=== PATIENT | male | born 1990 | race Caucasian/White ===

== ENCOUNTER 2022-06-26 15:17 | Outpatient (CLI) | payer SELFPAY | END 2022-06-26 15:18 | disposition left against medical advice (07) | LOC: EMS 15:17 | DX: R46.4 Slowness and poor responsiveness (principal); R63.8 Other symptoms and signs concerning food and fluid intake; R45.89 Other symptoms and signs involving emotional state ==

== ENCOUNTER 2022-06-26 17:05 | Emergency (ER) | payer MEDICAID, OTHER ==
[2022-06-26 17:40] VITALS: BP 165/97
== END 2022-06-26 18:08 | disposition left against medical advice (07) ==
LOC: ED 17:05
DX: Z53.21 Procedure and treatment not carried out due to patient leaving prior to being seen by health care provider (principal)
CPT/HCPCS: 80053; 80307; 80320; 80329; 83690; 84443; 85025

== ENCOUNTER 2022-10-13 19:37 | Emergency (ER) | payer SELFPAY ==
--- NOTE | 2022-10-13 20:34 | ED Physician Documentation ---
History of Present Illness - Stated complaint Stated Complaint: INTOX/MHE - Chief complaint Chief Complaint: MHE - History obtained from History obtained from: Patient, Family (mother and sister) - Additonal information Additional information: 32yM with pmh etoh p/w depressed behavior and heavy alcohol intake over the past 3 days per mother and daughter report. patient himself is intoxicated and not forthcoming with information. mother and daughter enquire about addiction treatment resources. Review of Systems Unable to obtain: Intoxicated PD PAST MEDICAL HISTORY - Past Medical History Past Medical History: Yes Cardiovascular: None Respiratory: None Endocrine/Autoimmune: None GI: None : None HEENT: None Psych: Depression, Other Musculoskeletal: None Derm: None Other Past Medical History: Alcoholism - Past Surgical History Past Surgical History: Yes General: Other Ortho: Other - Present Medications Home Medications: Ambulatory Orders Medication Instructions Recorded Confirmed No Known Home Medications 10/13/22 10/13/22 - Allergies Allergies/Adverse Reactions: Allergies Allergy/AdvReac Type Severity Reaction Status Date / Time No Known Drug Allergies Allergy Verified 10/13/22 19:57 - Social History Does the pt smoke?: No Smoking Status: Never smoker Does the pt drink ETOH?: Yes ETOH Use: Liquor Does the pt have substance abuse?: No - Immunizations Immunizations are current?: Yes Immunizations: TDAP >10years/unknown - POLST Patient has POLST: No PD ED PE NORMAL - Vitals Vital signs reviewed: Yes - General General: Alert and oriented X 3, No acute distress, Well developed/nourished - HEENT HEENT: Atraumatic, PERRL, EOMI, Moist mucous membranes, Pharynx benign - Neck Neck: Supple, no meningeal sign - Cardiac Cardiac: RRR - Respiratory Respiratory: No respiratory distress, Clear bilaterally - Abdomen Abdomen: Non tender, Non distended - Derm Derm: Normal color, Warm and dry - Extremities Extremities: No deformity - Neuro Neuro: Alert and oriented X 3, No motor deficit, No sensory deficit - Psych Psych: Other (clinically intoxicated) Results - Vitals Vitals: Vital Signs - 24 hr 10/13/22 10/13/22 19:45 20:40 Temperature 36.7 C Heart Rate 94 84 Respiratory 14 14 Rate Blood Pressure 158/118 H 144/111 H O2 Saturation 94 98 Oxygen O2 Source Room air PD Medical Decision Making - ED course ED course: d/w mother and sister of patient that since he himself is intoxicated at this time and does not want detox, the best course of action is to return during daylight hours when social work is available and he is more sober. emphasized need for medical assistance with detox since he states he drinks heavily daily and is at risk of withdrawal. additional community detox resources and info provided. return precautions given. patient will be dc'd home with sister and mother. plan to refer to a new pcp as well since he does not currently have health insurance or a pcp. Departure - Departure Disposition: Home, Self Care Clinical Impression: Alcohol abuse, Depression Condition: Stable Instructions: Addiction Alcohol Follow-Up: Valeria Chen PA-C [Provider Admit Priv/Credential] - Comments: You are seen in the emergency department for alcohol addiction. Please return to the emergency department between 9 and 5 PM Friday through Friday to speak with a nephrology social worker if you would like to seek out treatment. [place] also [place] some crisis triage facilities that can be a resource to you. Return to the emergency department if you have any new symptoms or other concerns. Do not try to quit drinking alcohol suddenly on your own because this can cause withdrawal which can be dangerous. Discharge Date/Time: 10/13/22 20:40
[2022-10-13 20:41] VITALS: BP 144/111
== END 2022-10-13 20:40 | disposition home or self-care (01) ==
LOC: ED 19:37
DX: F10.229 Alcohol dependence with intoxication, unspecified (principal); F32.A Depression, unspecified
CPT/HCPCS: 99281

== ENCOUNTER 2022-12-16 11:04 | Outpatient (CLI) | payer OTHER, MEDICAID | END 2022-12-16 23:59 | disposition critical access hospital (66) | LOC: EMS 11:04 | DX: R56.9 Unspecified convulsions (principal); Z72.89 Other problems related to lifestyle | CPT/HCPCS: A0425; A0429 ==

== ENCOUNTER 2022-12-16 11:16 | Inpatient (IN) | payer OTHER, MEDICAID ==
[2022-12-16] MEDS ORDERED: THIAMINE INJ 100 MG, MAGNESIUM SULFATE 2 GM, MULTIVITAMIN 10 ML, FOLIC ACID INJ 1 MG in... IV ONE ×5 (11:57)
--- NOTE | 2022-12-16 12:00 | ED Physician Documentation ---
History of Present Illness - Stated complaint Stated Complaint: SZ/ETOH - Chief complaint Chief Complaint: Neuro - History obtained from History obtained from: Patient, Family - History of Present Illness Timing: Today Pain level max: 6 Pain level now: 4 - Additonal information Additional information: 32-year-old male presents to the emergency department with EMS. He is also accompanied by his mother. Reportedly has a longstanding history of depression. Is not currently on any medications. His mother states that he has been severely depressed, not getting out of bed for the past 3 weeks. She states that he lost his job last week. He has been drinking approximately 18 beers per day for the past several weeks. He has not been eating otherwise. Mother states that he is trying to detox off alcohol himself. She states that his last drink was last night. Has never had a seizure before. Today there was a witnessed 3 to 4-minute seizure at home had a postictal period. Patient complains of mild pain in his back, chest and head. Patient was sitting on the edge of the bed when the seizure occurred. Currently he is at his normal mental baseline. No numbness or tingling. Is not currently on any blood thinners. Does not take any home medications. Denies any other drug use. He states that he does vape at home. Review of Systems Constitutional: denies: Fever, Chills GI: denies: Vomiting, Diarrhea Neurologic: denies: Focal weakness, Numbness, Confused, Altered mental status PD PAST MEDICAL HISTORY - Past Medical History Cardiovascular: None Respiratory: None Endocrine/Autoimmune: None GI: None : None HEENT: None Psych: Depression, Other Musculoskeletal: None Derm: None - Past Surgical History Past Surgical History: Yes General: Other Ortho: Other - Present Medications Home Medications: Ambulatory Orders Medication Instructions Recorded Confirmed No Known Home Medications 10/13/22 12/16/22 - Allergies Allergies/Adverse Reactions: Allergies Allergy/AdvReac Type Severity Reaction Status Date / Time No Known Drug Allergies Allergy Verified 10/13/22 19:57 - Social History Does the pt smoke?: No Smoking Status: Never smoker Does the pt drink ETOH?: Yes Does the pt have substance abuse?: No - Immunizations Immunizations are current?: Yes Immunizations: TDAP >10years/unknown - POLST Patient has POLST: No PD ED PE NORMAL - Vitals Vital signs reviewed: Yes - General General: Alert and oriented X 3, No acute distress, Well developed/nourished - HEENT HEENT: Atraumatic, PERRL, EOMI, Moist mucous membranes - Neck Neck: Supple, no meningeal sign - Cardiac Cardiac: RRR, Strong equal pulses - Respiratory Respiratory: No respiratory distress, Clear bilaterally - Abdomen Abdomen: Normal bowel sounds, Soft, Non tender, Non distended - Derm Derm: Warm and dry, No rash - Extremities Extremities: No edema, No calf tenderness / cord - Neuro Neuro: Alert and oriented X 3 - Psych Psych: Normal mood, Normal affect Results - Vitals Vitals: Vital Signs - 24 hr 12/16/22 12/16/22 12/16/22 11:26 11:43 12:21 Temperature 37.1 C Heart Rate 126 H 125 H 100 Respiratory 20 18 18 Rate Blood Pressure 159/117 H 162/113 H 146/103 H O2 Saturation 96 97 97 12/16/22 12/16/22 12/16/22 12:48 13:01 14:44 Temperature Heart Rate 95 87 82 Respiratory 20 18 18 Rate Blood Pressure 141/94 H 151/87 H 142/104 H O2 Saturation 95 99 94 12/16/22 12/16/22 12/16/22 15:02 15:54 16:30 Temperature Heart Rate 84 103 H 83 Respiratory 18 20 18 Rate Blood Pressure 165/100 H 160/115 H 171/129 H O2 Saturation 95 97 93 12/16/22 12/16/22 12/16/22 17:03 17:42 18:00 Temperature Heart Rate 81 90 97 Respiratory 18 20 18 Rate Blood Pressure 154/97 H 163/115 H 163/115 H O2 Saturation 92 93 93 12/16/22 12/16/22 12/16/22 18:30 19:20 19:30 Temperature Heart Rate 94 94 99 Respiratory 18 20 19 Rate Blood Pressure 135/121 H 143/104 H O2 Saturation 97 97 99 Oxygen O2 Source Room air - EKG (time done) 1234 Rate: Rate (enter#) (94) Rhythm: NSR [place]: Normal Intervals: Normal [place] QRS: Normal Ischemia: ST elevation c/w repol - Labs Labs: Laboratory Tests 12/16/22 12/16/22 12/16/22 12:05 12:05 12:05 WBC 8.9 RBC 4.81 Hgb 15.6 Hct 44.9 MCV 93.3 MCH 32.4 H MCHC 34.7 RDW 12.9 Plt Count 206 MPV 9.4 Neut # (Auto) 7.7 H Lymph # (Auto) 0.4 L White # (Auto) 0.7 Eos # (Auto) 0.0 Baso # (Auto) 0.1 Absolute Nucleated RBC 0.00 Nucleated RBC % 0.0 Sodium 133 L Potassium 3.5 Chloride 96 L Carbon Dioxide 23 Anion Gap 14.0 H BUN 12 Creatinine 0.8 Estimated GFR (MDRD) 112 Glucose 128 H Calcium 9.9 Phosphorus 1.5 L Magnesium 2.0 Total Bilirubin 1.5 H AST 75 H ALT 59 Alkaline Phosphatase 70 Total Protein 7.7 Albumin 4.3 Globulin 3.4 Albumin/Globulin Ratio 1.3 Lipase 97 H TSH 2.39 Urine Color Urine Clarity Urine pH Ur Specific [place] Urine Protein Urine Glucose (UA) Urine Ketones Urine Occult Blood Urine Nitrite Urine Bilirubin Urine Urobilinogen Ur Leukocyte Esterase Ur Microscopic Review Urine Culture Comments Salicylates < 6.0 Urine Opiates Screen Ur Oxycodone Screen Urine Methadone Screen Ur Propoxyphene Screen Acetaminophen < 10 L Ur Barbiturates Screen Ur Tricyclics Screen Ur Phencyclidine Scrn Ur Amphetamine Screen U Methamphetamines Scrn U Benzodiazepines Scrn Urine Cocaine Screen U Cannabinoids Screen Ethyl Alcohol < 5.0 SARS-CoV-2 (PCR) 12/16/22 12/16/22 12:47 13:57 WBC RBC Hgb Hct MCV MCH MCHC RDW Plt Count MPV Neut # (Auto) Lymph # (Auto) White # (Auto) Eos # (Auto) Baso # (Auto) Absolute Nucleated RBC Nucleated RBC % Sodium Potassium Chloride Carbon Dioxide Anion Gap BUN Creatinine Estimated GFR (MDRD) Glucose Calcium Phosphorus Magnesium Total Bilirubin AST ALT Alkaline Phosphatase Total Protein Albumin Globulin Albumin/Globulin Ratio Lipase TSH Urine Color YELLOW Urine Clarity CLEAR Urine pH 7.5 Ur Specific [place] 1.010 Urine Protein NEGATIVE Urine Glucose (UA) NEGATIVE Urine Ketones NEGATIVE Urine Occult Blood TRACE-INTA Urine Nitrite NEGATIVE Urine Bilirubin NEGATIVE Urine Urobilinogen 0.2 (NORMAL) Ur Leukocyte Esterase NEGATIVE Ur Microscopic Review NOT INDICATED Urine Culture Comments NOT INDICATED Salicylates Urine Opiates Screen NEGATIVE Ur Oxycodone Screen NEGATIVE Urine Methadone Screen NEGATIVE Ur Propoxyphene Screen NEGATIVE Acetaminophen Ur Barbiturates Screen NEGATIVE Ur Tricyclics Screen NEGATIVE Ur Phencyclidine Scrn NEGATIVE Ur Amphetamine Screen NEGATIVE U Methamphetamines Scrn NEGATIVE U Benzodiazepines Scrn NEGATIVE Urine Cocaine Screen NEGATIVE U Cannabinoids Screen NEGATIVE Ethyl Alcohol SARS-CoV-2 (PCR) NOT DETECTED - Rads (name of study) head CT Radiology: Final report received, See rad report (no acute abnormality) PD Medical Decision Making - ED course Complexity details: reviewed results, re-evaluated patient, considered differential, d/w patient, d/w family, d/w [employer] sales consultant ED course: 32-year-old male with what appears to be an alcohol withdrawal seizure today. No acute findings on head CT. His laboratory testing does not have any significant abnormalities on CBC. Chemistry shows a minimal hyponatremia, mildly elevated bilirubin and mildly elevated lipase. His urinalysis does not show any acute abnormalities talk screen is negative. COVID test is negative. Given a banana bag IV. He was also given 2 mg of Ativan as he was tremulous in the emergency department. He has never had seizures before. Recommend inpatient detox. Social work was consulted and will look for a bed. The psychiatric/detox facility state they will not take him until he is seizure- free for 24 to 48 hours. Therefore we will admit the patient here for alcohol detox given his seizure activity. He was given 2 mg of Ativan here initially and another milligram several hours later. He is not currently tremulous. Discussed the case with the telehealth hospitalist who accepts for admission. This document was made in part using voice recognition software. While efforts are made to proofread this document, sound alike and grammatical errors may occur. This document was made in part using voice recognition software. While efforts are made to proofread this document, sound alike and grammatical errors may occur. Departure - Departure Disposition: [facility] DC/Xfer Clinical Impression: Alcohol abuse Alcohol withdrawal seizure Qualifiers: Complication of substance-induced condition: uncomplicated Qualified Code(s): F10.930 - Alcohol use, unspecified with withdrawal, uncomplicated Depression Qualifiers: Depression Type: unspecified Qualified Code(s): F32.A - Depression, unspecified Condition: Stable Discharge Date/Time: 12/16/22 20:25
[2022-12-16 12:24] LABS: BASOPHILS # (AUTO) 0.1 10^3/uL (0.0-0.1); BASOPHILS % (AUTO) 0.7 %; HCT - HEMATOCRIT 44.9 % (42.0-52.0); HGB - HEMOGLOBIN 15.6 g/dL (14.0-18.0); LYMPHOCYTES # (AUTO) 0.4 10^3/uL (1.5-3.5); LYMPHOCYTES % (AUTO) 4.6 %; MEAN CORPUSCULAR HEMOGLOBIN 32.4 pg (27.0-31.0); MEAN CORPUSCULAR HGB CONC 34.7 g/dL (32.0-36.0); MEAN CORPUSCULAR VOLUME 93.3 fL (80.0-94.0); MEAN PLATELET VOLUME 9.4 fL (7.4-11.4); MONOCYTES # (AUTO) 0.7 10^3/uL (0.0-1.0); MONOCYTES % (AUTO) 7.6 %; NEUTROPHILS # (AUTO) 7.7 10^3/uL (1.5-6.6); NEUTROPHILS % (AUTO) 86.5 %; PLT - PLATELET COUNT 206 10^3/uL (130-450); RED BLOOD COUNT 4.81 10^6/uL (4.70-6.10); RED CELL DISTRIBUTION WIDTH 12.9 % (12.0-15.0); WHITE BLOOD COUNT 8.9 x10^3/uL (4.8-10.8)
[2022-12-16 12:35] LABS: ACETAMINOPHEN < 10 ug/mL (10-30); ALBUMIN 4.3 g/dL (3.2-5.5); ALBUMIN/GLOBULIN RATIO 1.3 (1.0-2.2); ALKALINE PHOSPHATASE 70 IU/L (42-121); ALT ALANINE AMINOTRANSFERASE 59 IU/L (10-60); AST ASPARTATE AMINOTRANSFERASE 75 IU/L (10-42); BILIRUBIN,TOTAL 1.5 mg/dL (0.2-1.0); BUN - BLOOD UREA NITROGEN 12 mg/dL (6-20); CALCIUM 9.9 mg/dL (8.5-10.3); CARBON DIOXIDE - CO2 23 mmol/L (21-32); CHLORIDE 96 mmol/L (101-111); CREATININE 0.8 mg/dL (0.6-1.2); ETOH - ETHANOL < 5.0 mg/dL; GFR - MDRD 112 (>89); GLUCOSE 128 mg/dL (70-100); LIPASE 97 U/L (22-51); PHOSPHORUS 1.5 mg/dL (2.5-4.6); POTASSIUM 3.5 mmol/L (3.5-5.0); SALICYLATE < 6.0 mg/dL; SODIUM 133 mmol/L (135-145); TOTAL PROTEIN 7.7 g/dL (6.7-8.2)
--- NOTE | 2022-12-16 12:46 | CT Report ---
PROCEDURE: HEAD WO INDICATIONS: new onset seizure TECHNIQUE: Noncontrast 4.5 mm thick angled axial sections acquired from the foramen magnum to the vertex. For r adiation dose reduction, the following was used: automated exposure control, adjustment of mA and/or kV according to patient size. COMPARISON: None. FINDINGS: Image quality: Excellent. CSF spaces: Basal cisterns are patent. No extra-axial fluid collections. Ventricles are normal in size and shape. Brain: No midline shift. No intracranial masses or hemorrhage. Alford-white matter interface is norm al. Skull and face: Calvarium and visualized facial bones are intact, without suspicious lesions. Sinuses: Visualized sinuses and mastoids are clear. IMPRESSION: No evidence acute intracranial abnormality. Reviewed by: Alan Land MD on 12/16/2022 12:45 PM PST Approved by: Alan Land MD on 12/16/2022 12:45 PM [facility] Station ID: [id number]
[2022-12-16] MEDS ORDERED: LORazepam 2 MG/ML VIAL IVP STA ×2 (14:13→18:16)
[2022-12-16 14:18] LABS: MUDS CUTOFF CONCENTRATIONS CUTOFF CONC BELOW:
[2022-12-16 14:27] LABS: BILIRUBIN,URINE NEGATIVE (NEGATIVE); GLUCOSE, URINE (UA) NEGATIVE (NEGATIVE); KETONES,URINE (UA) NEGATIVE (NEGATIVE); LEUKOCYTE ESTERASE, URINE NEGATIVE (NEGATIVE); NITRITE,URINE NEGATIVE (NEGATIVE); OCCULT BLOOD,URINE TRACE-INTA (NEGATIVE); PH,URINE 7.5 PH (5.0-7.5); PROTEIN,URINE NEGATIVE (NEGATIVE); UROBILINOGEN,URINE 0.2 (NORMAL) E.U./dL (NORMAL)
[2022-12-16 14:28] LABS: CLARITY,URINE CLEAR (CLEAR)
[2022-12-16 14:36] LABS: AMPHETAMINE SCREEN,URINE NEGATIVE (NEGATIVE); BARBITURATE SCREEN,UR NEGATIVE (NEGATIVE); BENZODIAZEPINES SCREEN, URINE NEGATIVE (NEGATIVE); COCAINE SCREEN URINE NEGATIVE (NEGATIVE); METHADONE SCREEN, URINE NEGATIVE (NEGATIVE); METHAMPHETAMINES SCREEN, URINE NEGATIVE (NEGATIVE); OPIATE SCREEN, URINE NEGATIVE (NEGATIVE); OXYCODONE SCREEN, URINE NEGATIVE (NEGATIVE); PROPOXYPHENE SCREEN, URINE NEGATIVE (NEGATIVE); THC CANNABINOID SCREEN, URINE NEGATIVE (NEGATIVE); TRICYCLIC ANTIDEPRESSANT,URINE NEGATIVE (NEGATIVE)
--- NOTE | 2022-12-16 19:28 | HISTORY & PHYSICAL EXAMINATION ---
Chief Complaint - Chief Complaint Chief Complaint: Seizure History of Present Illness - Admitted From Admitted From:: ER - History Obtained From Records Reviewed: Yes History obtained from: ER, pt Exam Limitations: H&P was conducted via video remotely, using Access Cart. - History of Present Illness HPI Comment/Other: 32 yo M with h/o Depression, remote h/o Migraines and ETOH abuse presented to the ER s/p seizure this AM. Pt has no h/o Seizures. He has been drinking about 18-24 beers/day x 2 months. He recently went through the end of a relationship. His mother had previously reported that he lost his job 1 week ago. His last beer was yesterday afternoon. This AM, he went to a Walk-in clinic to ask for help with ETOH Detox. He was told to come back tomorrow. When they returned to the house, he saw a flash of light which reminded him of his old Migraines. His mother went to get him some meds from another room. Pt went into his bedroom and stood by his bed. His mother then heard a "thud." She and pt's sister went to see pt. He was having a seizure, unconscious with jerking movements, lasting about 7 minutes. When pt woke up, he felt confused, his tongue hurt; he had bitten it. He felt sore all over. Pt denies N/V/Abdo pain/F/C/CP/SOB. In the ER, BP 163/115, HR 90, AST 75, ETOH<5. Pt was given Banana Bag, Ativan 2 mg IV then another 1 mg IV 3 hours later. SW was consulted. Detox facilities will not take pt until he has been seizure- free x 24-48 hours. History - Past Medical History Cardiovascular: reports: None Respiratory: reports: None Endocrine/Autoimmune: reports: None GI: reports: None : reports: None HEENT: reports: None Psych: reports: Depression, Other Musculoskeletal: reports: None Derm: reports: None MRSA Hx?: No - Past Surgical History General: reports: Other Ortho: reports: Other - POLST Patient has POLST: No Meds/Allgy - Home Medications Home Medications: Ambulatory Orders Medication Instructions Recorded Confirmed No Known Home Medications 10/13/22 12/16/22 - Allergies Allergies/Adverse Reactions: Allergies Allergy/AdvReac Type Severity Reaction Status Date / Time No Known Drug Allergies Allergy Verified 10/13/22 19:57 Review of Systems - All Other Systems All Other Systems: reports: Reviewed and negative Exam - Vital Signs Vital Signs: Vital Signs x48h Temp Pulse Resp BP Pulse Ox 12/16/22 19:20 94 20 135/121 H 97 12/16/22 18:30 94 18 97 12/16/22 18:00 97 18 163/115 H 93 12/16/22 17:42 90 20 163/115 H 93 12/16/22 17:03 81 18 154/97 H 92 12/16/22 16:30 83 18 171/129 H 93 12/16/22 15:54 103 H 20 160/115 H 97 12/16/22 15:02 84 18 165/100 H 95 12/16/22 14:44 82 18 142/104 H 94 12/16/22 13:01 87 18 151/87 H 99 12/16/22 12:48 95 20 141/94 H 95 12/16/22 12:21 100 18 146/103 H 97 12/16/22 11:43 125 H 18 162/113 H 97 12/16/22 11:26 37.1 C 126 H 20 159/117 H 96 - Physical Exam General Appearance: positive: No acute distress Eyes Bilateral: positive: EOMI, No scleral icterus Respiratory: positive: Other ( per ER Provider: CTA B/L) Cardiovascular: positive: Other ( per ER Provider: RRR, no murmurs) Abdomen: positive: Other (per ER Provider: non-distended, NT, Soft) Neurologic/Psychiatric: positive: Oriented x3, CN's nml (2-12) Conclusion/Plan - Problem List (1) Alcohol withdrawal seizure Conclusion/Plan: ETOH Withdrawal with Seizure ETOH abuse High BP Tachycardia Elevated LFTs -BP 163/115, HR 90, AST 75, ETOH<5. -Pt was given Banana Bag, Ativan 2 mg IV then another 1 mg IV 3 hours later. Per ER Provider, he currently has mild symptoms of W/D. -SW was consulted. Detox facilities will not take pt until he has been seizure- free x 24-48 hours. -pt appears alert, stable, not currently tremulous -admit to Med tele -continue CIWA protocol with PRN IV Ativan Depression -pt not on meds -recommend F/u with Psych VTE Prophylaxis: Lovenox Code Status: Full Code -Cyndi Loco MD Hospitalist Qualifiers: Complication of substance-induced condition: uncomplicated Qualified Code(s): F10.930 - Alcohol use, unspecified with withdrawal, uncomplicated; R56.9 - Unspecified convulsions - Lab Results Fish Bones: 12/16/22 12:05 12/16/22 12:05
[2022-12-16] MEDS ORDERED: LORazepam 2 MG/ML VIAL IVP PRN (19:44)
[2022-12-16] MEDS ORDERED: ONDANSETRON ODT 4 MG TABLET TL PRN (19:48)
[2022-12-16] MEDS ORDERED: ACETAMINOPHEN 325 MG TABLET PO PRN (19:48)
[2022-12-16] MEDS ORDERED: SODIUM CHLORIDE FLUSH 0.9% 10 ML SYRINGE IVP PRN (19:48)
[2022-12-16] MEDS ORDERED: ONDANSETRON 4 MG/2 ML VIAL IVP PRN (19:48)
[2022-12-17] MEDS: SODIUM CHLORIDE FLUSH 0.9% 10 ML SYRINGE IVP SCH ×2 (00:15→08:28)
[2022-12-17 06:22] LABS: BASOPHILS # (AUTO) 0.1 10^3/uL (0.0-0.1); BASOPHILS % (AUTO) 0.6 %; EOSINOPHILS # (AUTO) 0.1 10^3/uL (0.0-0.7); HCT - HEMATOCRIT 44.1 % (42.0-52.0); HGB - HEMOGLOBIN 15.2 g/dL (14.0-18.0); LYMPHOCYTES # (AUTO) 0.9 10^3/uL (1.5-3.5); LYMPHOCYTES % (AUTO) 11.1 %; MEAN CORPUSCULAR HEMOGLOBIN 32.9 pg (27.0-31.0); MEAN CORPUSCULAR HGB CONC 34.5 g/dL (32.0-36.0); MEAN CORPUSCULAR VOLUME 95.5 fL (80.0-94.0); MEAN PLATELET VOLUME 9.6 fL (7.4-11.4); MONOCYTES # (AUTO) 0.9 10^3/uL (0.0-1.0); MONOCYTES % (AUTO) 10.7 %; NEUTROPHILS # (AUTO) 6.1 10^3/uL (1.5-6.6); NEUTROPHILS % (AUTO) 76.3 %; PLT - PLATELET COUNT 169 10^3/uL (130-450); RED BLOOD COUNT 4.62 10^6/uL (4.70-6.10); RED CELL DISTRIBUTION WIDTH 13.2 % (12.0-15.0)
[2022-12-17 06:39] LABS: ALBUMIN 4.1 g/dL (3.2-5.5); ALBUMIN/GLOBULIN RATIO 1.1 (1.0-2.2); BILIRUBIN,TOTAL 1.4 mg/dL (0.2-1.0); CALCIUM 9.7 mg/dL (8.5-10.3); CREATININE 0.7 mg/dL (0.6-1.2); MAGNESIUM 2.1 mg/dL (1.7-2.8); POTASSIUM 3.3 mmol/L (3.5-5.0); TOTAL PROTEIN 7.7 g/dL (6.7-8.2)
[2022-12-17] MEDS ORDERED: THIAMINE 100 MG TABLET PO SCH (09:00)
[2022-12-17] MEDS ORDERED: PRENATAL VITAMIN TABLET PO SCH (09:00)
[2022-12-17] MEDS ORDERED: ENOXAPARIN 40 MG/0.4 ML SYRINGE SUBQ SCH (09:00)
--- NOTE | 2022-12-17 10:30 | PHARMACY PROGRESS NOTE ---
- Best Possible Medication History Admit Date and Time: 12/16/221947 Processed by: Pharmacy Medication History completed: Yes Patient Interview: Completed Secondary Source(s): Other family member (his mother knows his OTC meds) As the person ultimately responsible for medication therapy, providers are able to order a medication from an existing home medication list in [facility] via the "Reconcile Routine" prior to Confirmation of that medication by cad application support specialist. Such practice is discouraged except when the physician, in their clinical judgment, deems that a medical need exists for a medication without regard to previous use.
--- NOTE | 2022-12-17 11:15 | Discharge Plan ---
Discharge Plan Problem Reviewed?: Yes Disposition: Home, Self Care Condition: Stable Prescriptions: Citalopram [CeleXA] 10 mg PO DAILY #30 tablet Folic Acid 1 mg PO DAILY #30 tablet Thiamine [Vitamin B-1] 1 tab PO DAILY #100 tab Diet: Regular Activity Restrictions: Activity as Tolerated Shower Restrictions: No Driving Restrictions: Yes (no driving for 6 months) Health Concerns: You have a history of alcohol abuse as a way to self medicate for anxiety with depression. You have been sober for 2 months and then went back to binge drinking. Your last drink was December 15. By the you are having shakes and you had a witnessed seizure in public, and then another witnessed seizure at home with your mom. Ambulance was called. We evaluated you to make sure you were not having any other reasons to have seizures. We look for brain tumors, strokes, electrolyte abnormalities, or recreational substance abuse. We found no other reason other than alcohol withdrawal to cause the seizure. Plan of Treatment: You have received IV fluids for hydration with multivitamins with thiamine and folate. You have not had any medication for withdrawal since the day you were admitted. You currently do not have any shakes, high blood pressure, or fast heart rate. You are asking for medication for depression and anxiety. The medications recommended are Paxil, Zoloft, Celexa, or Lexapro. Your mom has used Celexa in the past so we will be recommending it for you. That is been called into [email or web address]. Celexa started at 10 mg a day. It is increased about once a week to 20 mg, then 30 mg then 40 mg. Please establish yourself with a primary care provider to get the increase Celexa. These medications are successful when combined with cognitive behavioral therapy. We recommend cognitive behavioral therapy to be started as soon as possible to help with anxiety and depression. We also recommend a rehab program for alcohol abuse. The study shows that if you combine treatment for both problems at the same time, you have better success rates of staying clean and sober as well as controlling your depression and anxiety. Care Goals: You have not stated what your care goals are. Your family, however, is stated they wish you to address your alcohol abuse and stop drinking so that you can stay gainfully employed, and not suffer the medical complications of alcoholism. Hopefully 1 day you will be able to state what your care goals are Assessment: Plan of treatment and care goals discussed with the patient. Patient states that they understand and will follow through. Additional Instructions or Follow Up instructions: This document was made in part using voice recognition software. While efforts are made to proofread this document, sound alike and grammatical errors may occur. No Smoking: If you smoke, Please STOP! Call for help.
[2022-12-17] MEDS ORDERED: POTASSIUM CHLORIDE 20 MEQ TABLET PO SCH (12:00)
--- NOTE | 2022-12-17 12:18 | DISCHARGE SUMMARY ---
Discharge Summary Admit Date: 12/16/22 Discharge Date: 12/17/22 Discharging Provider: Kendra Montenegro MD Primary Care Provider: No PCP Code Status: Attempt Resuscitation Condition at Discharge: Stable Discharge Disposition: 01 Home, Self Care - DIAGNOSES Discharge Diagnoses with Status of Each Condition: 1. Alcohol withdrawal seizure 2. Alcohol abuse, chronic 3. Depressive disorder with generalized anxiety 4. Hypokalemia 5. Hypertension without diagnosis of high blood pressure - HPI History of Present Illness: 32 yo M with h/o Depression, remote h/o Migraines and ETOH abuse presented to the ER s/p seizure this AM. Pt has no h/o Seizures. He has been drinking about 18-24 beers/day x 2 months. He recently went through the end of a relationship. His mother had previously reported that he lost his job 1 week ago. His last beer was yesterday afternoon. This AM, he went to a Walk-in clinic to ask for help with ETOH Detox. He was told to come back tomorrow. When they returned to the house, he saw a flash of light which reminded him of his old Migraines. His mother went to get him some meds from another room. Pt went into his bedroom and stood by his bed. His mother then heard a "thud." She and pt's sister went to see pt. He was having a seizure, unconscious with jerking movements, lasting about 7 minutes. When pt woke up, he felt confused, his tongue hurt; he had bitten it. He felt sore all over. Pt denies N/V/Abdo pain/F/C/CP/SOB. In the ER, BP 163/115, HR 90, AST 75, ETOH<5. Pt was given Banana Bag, Ativan 2 mg IV then another 1 mg IV 3 hours later. SW was consulted. Detox facilities will not take pt until he has been seizure- free x 24-48 hours. - Past Medical History Cardiovascular: reports: None Respiratory: reports: None Endocrine/Autoimmune: reports: None GI: reports: None : reports: None HEENT: reports: None Psych: reports: Depression, Other Musculoskeletal: reports: None Derm: reports: None MRSA Hx?: No - Past Surgical History General: reports: Other Ortho: reports: Other - CONSULTS | PROCEDURES Procedures: Head CT is without evidence of acute intracranial abnormality - HOSPITAL COURSE Hospital Course: The patient was admitted for presumed alcohol withdrawal that would continue for the next few days. He only required a benzodiazepine in the emergency room. He did not have any further seizures. After 24 hours, the patient was felt stable enough for discharge. There is no tremulousness, sweats, tachycardia. He himself stated that he felt "okay". His main concern was treatment for anxiety and depression. That is why he drinks. He asked for medication to start and we started him on Celexa 10 mg a day with the anticipation that he would establish himself with a primary care provider and increase his dosage in the next week. I also asked him to continue to take thiamine and folic acid in the outpatient setting. I explained that treatment for both anxiety and depression, combined with treatment for the alcoholism would have a better success rate. I also explained that combining the Celexa with cognitive behavioral therapy would also increase the success rates. Social work has signed him up with coordinated care to access Medicaid benefits. He has been referred to the [facility] clinics for mental health. He needs to follow-up with those as well as establish himself with a primary care provider. He is discharged in stable condition, with no acute distress. Patient is calm, quiet. Mom and sister do most of the talking. Temperature is 36.6. Heart rate 93. Blood pressure 149/97. Respirations 20. 97% on room air. No diaphoresis, tachycardia. Speech is slow and lucid. Sentence structure is normal. No respiratory distress. Hypertension is noted but it is just over the border of treatment. This may be associated with withdrawal. As such I did not want to send him home on medications. He will need to follow-up with a primary care provider to start routine medications for that if still present. Neck was supple. Lungs were clear. Regular rate and rhythm. Alert, oriented, normal speech. He appeared very calm, and almost on worried in comparison to his sister and mom. - ALLERGIES Allergies/Adverse Reactions: Allergies Allergy/AdvReac Type Severity Reaction Status Date / Time No Known Drug Allergies Allergy Verified 10/13/22 19:57 - MEDICATIONS Home Medications: Ambulatory Orders Medication Instructions Recorded Confirmed Citalopram [CeleXA] 10 mg PO DAILY #30 tablet 12/17/22 Folic Acid 1 mg PO DAILY #30 tablet 12/17/22 Glucosamine Sulfate 1 tab PO DAILY 12/17/22 12/17/22 Melatonin 1 - 2 tab PO HS 12/17/22 12/17/22 Multivitamin [Theragran] 1 tab PO DAILY 12/17/22 12/17/22 Thiamine [Vitamin B-1] 1 tab PO DAILY #100 tab 12/17/22 Zinc Gluconate [Zinc] 1 tab PO BID 12/17/22 12/17/22 - LABS Result Diagrams: 12/17/22 05:46 12/17/22 05:46
[2022-12-17 12:57] VITALS: BP 140/99
[2022-12-17 13:20] LABS: MUDS CUTOFF CONCENTRATIONS CUTOFF CONC BELOW:
[2022-12-17 13:34] LABS: AMPHETAMINE SCREEN,URINE NEGATIVE (NEGATIVE); BARBITURATE SCREEN,UR NEGATIVE (NEGATIVE); BENZODIAZEPINES SCREEN, URINE POSITIVE (NEGATIVE); COCAINE SCREEN URINE NEGATIVE (NEGATIVE); METHADONE SCREEN, URINE NEGATIVE (NEGATIVE); METHAMPHETAMINES SCREEN, URINE NEGATIVE (NEGATIVE); OPIATE SCREEN, URINE NEGATIVE (NEGATIVE); OXYCODONE SCREEN, URINE NEGATIVE (NEGATIVE); PROPOXYPHENE SCREEN, URINE NEGATIVE (NEGATIVE); THC CANNABINOID SCREEN, URINE NEGATIVE (NEGATIVE); TRICYCLIC ANTIDEPRESSANT,URINE NEGATIVE (NEGATIVE)
== END 2022-12-17 14:17 | disposition home or self-care (01) | DRG 897 ==
LOC: EDUNIT# → ED 11:16 → MS2 19:48
PROVIDERS: ADMIT Internal Medicine; ATTEND Specialist
DX: F10.239 Alcohol dependence with withdrawal, unspecified (principal); R56.9 Unspecified convulsions; R51.9 Headache, unspecified; F41.8 Other specified anxiety disorders; E87.6 Hypokalemia; I10 Essential (primary) hypertension; Z20.822 Contact with and (suspected) exposure to COVID-19
CPT/HCPCS: 36415; 70450; 80053; 80306; 80307; 80320; 80329; 81003; 83690; 83735; 84100; 84443; 85025; 87635; 93005; 96365; 96366; 96372; 96375; 96376; 99285; A9270; G0378; J1650; J2060; J3411; 81001; 87086

== ENCOUNTER 2023-10-21 21:38 | Emergency (ER) | payer MEDICAID, OTHER ==
[2023-10-21] MEDS ORDERED: SODIUM CHLORIDE 0.9% 1,000 ML IV STA (22:12)
[2023-10-21] MEDS ORDERED: PHENobarbital 65 MG/ML VIAL IV STA (22:12)
[2023-10-21 22:33] LABS: BASOPHILS % (AUTO) 0.9 %; EOSINOPHILS % (AUTO) 0.2 %; HCT - HEMATOCRIT 43.2 % (42.0-52.0); HGB - HEMOGLOBIN 15.7 g/dL (14.0-18.0); LYMPHOCYTES # (AUTO) 1.1 10^3/uL (1.5-3.5); LYMPHOCYTES % (AUTO) 25.2 %; MEAN CORPUSCULAR HEMOGLOBIN 33.7 pg (27.0-31.0); MEAN CORPUSCULAR HGB CONC 36.3 g/dL (32.0-36.0); MEAN CORPUSCULAR VOLUME 92.7 fL (80.0-94.0); MEAN PLATELET VOLUME 9.7 fL (7.4-11.4); MONOCYTES # (AUTO) 0.5 10^3/uL (0.0-1.0); MONOCYTES % (AUTO) 12.1 %; NEUTROPHILS # (AUTO) 2.6 10^3/uL (1.5-6.6); NEUTROPHILS % (AUTO) 61.6 %; PLT - PLATELET COUNT 115 10^3/uL (130-450); RED BLOOD COUNT 4.66 10^6/uL (4.70-6.10); RED CELL DISTRIBUTION WIDTH 11.7 % (12.0-15.0); WHITE BLOOD COUNT 4.3 x10^3/uL (4.8-10.8)
[2023-10-21 22:44] LABS: ALBUMIN 4.7 g/dL (3.2-5.5)
[2023-10-21 23:15] LABS: ALBUMIN/GLOBULIN RATIO 1.5 (1.0-2.2); BILIRUBIN,TOTAL 1.3 mg/dL (0.2-1.0); CREATININE 0.6 mg/dL (0.6-1.3); ETOH - ETHANOL 508.5 mg/dL; POTASSIUM 3.2 mmol/L (3.5-4.5); TOTAL PROTEIN 7.9 g/dL (6.4-8.9)
[2023-10-22] MEDS ORDERED: SODIUM CHLORIDE 0.9% 1,000 ML IV STA ×2 (01:12→06:54)
[2023-10-22] MEDS ORDERED: THIAMINE INJ 100 MG, MAGNESIUM SULFATE 2 GM, MULTIVITAMIN 10 ML, FOLIC ACID INJ 1 MG in... IV STA ×5 (01:55)
[2023-10-22 01:56] LABS: AMPHETAMINE SCREEN,URINE NEGATIVE (NEGATIVE); BARBITURATE SCREEN,UR NEGATIVE (NEGATIVE); BENZODIAZEPINES SCREEN, URINE NEGATIVE (NEGATIVE); BUPRENORPHINE SCREEN, URINE NEGATIVE (NEGATIVE); COCAINE SCREEN URINE NEGATIVE (NEGATIVE); METHADONE SCREEN, URINE NEGATIVE (NEGATIVE); METHAMPHETAMINES SCREEN, URINE NEGATIVE (NEGATIVE); OPIATE SCREEN, URINE NEGATIVE (NEGATIVE); OXYCODONE SCREEN, URINE NEGATIVE (NEGATIVE); THC CANNABINOID SCREEN, URINE NEGATIVE (NEGATIVE); TRICYCLIC ANTIDEPRESSANT,URINE NEGATIVE (NEGATIVE)
[2023-10-22] MEDS ORDERED: MAGNESIUM SULFATE 1 GM/2 ML VIAL ONE (02:58)
[2023-10-22] MEDS ORDERED: FOLIC ACID 5 MG/1 ML 10ML MDV ONE (02:58)
[2023-10-22] MEDS ORDERED: THIAMINE 100 MG/1 ML 2 ML MDV ONE (02:58)
[2023-10-22 04:16] VITALS: BP 134/80; O2SAT 95
--- NOTE | 2023-10-22 04:44 | ED Physician Documentation ---
History of Present Illness - Stated complaint Stated Complaint: DETOX - Chief complaint Chief Complaint: MHE - History obtained from History obtained from: Patient, Family - Additonal information Additional information: Patient is brought to the emergency department by family for chief complaint of "I want detox". The patient has a longstanding history of alcohol abuse but has been especially struggling for about the last year and a half. He states the last 2 weeks have been worse still, since his grandmother . Sister states patient has just been laying around, drinking all day and not eating any food or taking care of himself otherwise. Patient denies taking any other drugs. He states that he does not have any physical complaints. No vomiting. No shortness of breath. He has a history of alcohol withdrawal seizures. His last drink was about an hour and a half ago and he has not been trying to cut back today, but has had a fairly typical alcohol intake. PD PAST MEDICAL HISTORY - Past Medical History Cardiovascular: None Respiratory: None Endocrine/Autoimmune: None GI: None : None HEENT: None Psych: Depression, Other Musculoskeletal: None Derm: None - Past Surgical History Past Surgical History: Yes General: Other Ortho: Other - Present Medications Home Medications: Ambulatory Orders Medication Instructions Recorded Confirmed No Known Home Medications 10/21/23 10/21/23 - Allergies Allergies/Adverse Reactions: Allergies Allergy/AdvReac Type Severity Reaction Status Date / Time No Known Drug Allergies Allergy Verified 10/21/23 22:03 - Social History Does the pt smoke?: No Smoking Status: Never smoker Does the pt drink ETOH?: Yes Does the pt have substance abuse?: No - Immunizations Immunizations are current?: Yes Immunizations: TDAP >10years/unknown - POLST Patient has POLST: No PD ED PE NORMAL - Vitals Vital signs reviewed: Yes - General General: No acute distress, Well developed/nourished, Other (Heavily intoxicated, does arouse to answer questions.) - HEENT HEENT: Atraumatic, PERRL, EOMI, Moist mucous membranes - Neck Neck: Supple, no meningeal sign - Cardiac Cardiac: No murmur, Strong equal pulses, Other (Tachycardic rate regular rhythm no murmurs.) - Respiratory Respiratory: No respiratory distress, Clear bilaterally - Abdomen Abdomen: Soft, Non tender, Non distended - Derm Derm: Normal color, Warm and dry, No rash - Extremities Extremities: No deformity, No edema - Neuro Neuro: Other (Heavily intoxicated clinically, drowsy, but arouses to answer q uestions. No gross deficits otherwise.) - Psych Psych: Normal mood, Normal affect Results - Vitals Vitals: Vital Signs - 24 hr 10/21/23 10/21/23 10/21/23 21:54 22:35 23:00 Temperature 36.6 C Heart Rate 116 H 110 H 111 H Respiratory 17 14 16 Rate Blood Pressure 144/99 H 155/120 H 162/100 H O2 Saturation 97 92 95 10/21/23 10/22/23 10/22/23 23:30 00:00 01:00 Temperature Heart Rate 113 H 109 H 103 H Respiratory 18 18 15 Rate Blood Pressure 137/100 H 141/100 H 135/95 H O2 Saturation 95 95 93 10/22/23 10/22/23 10/22/23 02:00 03:00 04:00 Temperature Heart Rate 108 H 117 H 100 Respiratory 15 14 15 Rate Blood Pressure 121/77 140/89 H 134/80 H O2 Saturation 94 96 95 Oxygen O2 Source Room air - EKG (time done) 0131 EKG releavant findings:: EKG personally interpreted by author of this note. Relevant findings are: Rate: Rate (enter#) (126) Rhythm: Sinus tachycardia [place]: LAD Intervals: Normal NE QRS: Normal Ischemia: Normal ST segments Compare to prior EKG: Old EKG unavailable Computer interpretation: Agree with computer - Labs Labs: Laboratory Tests 10/21/23 10/21/23 10/21/23 22:25 22:25 22:25 WBC 4.3 L RBC 4.66 L Hgb 15.7 Hct 43.2 MCV 92.7 MCH 33.7 H MCHC 36.3 H RDW 11.7 L Plt Count 115 L MPV 9.7 Neut # (Auto) 2.6 Lymph # (Auto) 1.1 L [place] # (Auto) 0.5 Eos # (Auto) 0.0 Baso # (Auto) 0.0 Absolute Nucleated RBC 0.00 Nucleated RBC % 0.0 Sodium 131 L Potassium 3.2 L Chloride 88 L Carbon Dioxide 26 Anion Gap 17.0 H BUN 4 L Creatinine 0.6 Estimated GFR (MDRD) 155 Glucose 122 H Calcium 9.0 Total Bilirubin 1.3 H AST 264 H ALT 97 H Alkaline Phosphatase 81 Total Protein 7.9 Albumin 4.7 Globulin 3.2 Albumin/Globulin Ratio 1.5 Lipase 146 H TSH 1.59 Urine Opiates Screen Ur Buprenorphine Scrn Ur Oxycodone Screen Urine Methadone Screen Ur Barbiturates Screen Ur Tricyclics Screen Ur Phencyclidine Scrn Ur Amphetamine Screen U Methamphetamines Scrn U Benzodiazepines Scrn Urine Cocaine Screen U Cannabinoids Screen Ur Drug Screen Comment Ethyl Alcohol 508.5 H* SARS-CoV-2 (PCR) 10/21/23 10/22/23 23:04 01:30 WBC RBC Hgb Hct MCV MCH MCHC RDW Plt Count MPV Neut # (Auto) Lymph # (Auto) [place] # (Auto) Eos # (Auto) Baso # (Auto) Absolute Nucleated RBC Nucleated RBC % Sodium Potassium Chloride Carbon Dioxide Anion Gap BUN Creatinine Estimated GFR (MDRD) Glucose Calcium Total Bilirubin AST ALT Alkaline Phosphatase Total Protein Albumin Globulin Albumin/Globulin Ratio Lipase TSH Urine Opiates Screen NEGATIVE Ur Buprenorphine Scrn NEGATIVE Ur Oxycodone Screen NEGATIVE Urine Methadone Screen NEGATIVE Ur Barbiturates Screen NEGATIVE Ur Tricyclics Screen NEGATIVE Ur Phencyclidine Scrn NEGATIVE Ur Amphetamine Screen NEGATIVE U Methamphetamines Scrn NEGATIVE U Benzodiazepines Scrn NEGATIVE Urine Cocaine Screen NEGATIVE U Cannabinoids Screen NEGATIVE Ur Drug Screen Comment CUTOFF CONC BELOW: Ethyl Alcohol SARS-CoV-2 (PCR) NOT DETECTED PD Medical Decision Making - ED course Complexity details: reviewed results, re-evaluated patient, considered differential, d/w patient, d/w family ED course: The patient was worked up in the emergency department with labs. He was found to have an alcohol level of over 500. He was mildly hypokalemic and hyponatremic and had moderate elevations of his transaminases. No significant findings on workup otherwise. I discussed with his sister that he was going to have to be observed for quite a while before he would be medically clear to be evaluated by social work. Patient was agreeable to staying through the night while he star up, so he can see social work in the morning. At this point in time, the patient is receiving his fourth liter of IV fluid. He has received 2 L of 0.9 normal saline and also a banana bag. The patient after 2 L urinated 100 cc of urine. His heart rate has improved nicely and his blood pressure is also better. At this point in time, the patient will be signed out to Dr. Castro at change of shift, pending social work evaluation with the hope of placement in a detox facility. Departure - Departure Forms: PCP List
[2023-10-22] MEDS ORDERED: PHENobarbital 65 MG/ML VIAL IV STA (09:49)
[2023-10-22] MEDS ORDERED: LORazepam 2 MG/ML VIAL IVP STA ×2 (09:50→11:44)
[2023-10-22] MEDS ORDERED: LACTATED RINGERS 1,000 ML IV STA (09:51)
--- NOTE | 2023-10-22 09:53 | ED Physician Documentation ---
ED Addendum - Addendum Addendum: 10/22/23 09:52 The patient's blood alcohol level was down under 250 on the repeat blood draw 7 this morning. Nursing reports the patient is started to have some withdrawal symptoms now. We will give him some more phenobarb and Ativan and fluids. His labs and chart note have been sent to the detox center in [place] and they are reviewing it. Patient is still wanting detox.
[2023-10-22 10:19] LABS: PT - PROTHROMBIN TIME 11.5 secs (9.9-12.6)
[2023-10-22 10:23] LABS: CALCIUM 7.8 mg/dL (8.5-10.3); CREATININE 0.6 mg/dL (0.6-1.3); MAGNESIUM 1.6 mg/dL (1.7-2.3); POTASSIUM 3.3 mmol/L (3.5-4.5)
[2023-10-22] MEDS ORDERED: ONDANSETRON 4 MG/2 ML VIAL IVP STA (11:44)
[2023-10-22] MEDS ORDERED: PHENobarbital 65 MG/ML VIAL IM STA (11:44)
== END 2023-10-22 12:58 | disposition home or self-care (01) ==
LOC: ED 21:38
DX: F10.239 Alcohol dependence with withdrawal, unspecified (principal); Y90.8 Blood alcohol level of 240 mg/100 ml or more; R00.0 Tachycardia, unspecified; E87.6 Hypokalemia; E87.1 Hypo-osmolality and hyponatremia
CPT/HCPCS: 36415; 80048; 80053; 80306; 80320; 83690; 83735; 84443; 85025; 85610; 87635; 93005; 96361; 96365; 96372; 96375; 96376; 99283; 99284; J2060; J2560; J3411; J7120

== ENCOUNTER 2024-02-18 13:51 | Outpatient (CLI) | payer SELFPAY | END 2024-02-18 23:59 | disposition critical access hospital (66) | LOC: EMS 13:51 | DX: F10.90 Alcohol use, unspecified, uncomplicated (principal); F41.9 Anxiety disorder, unspecified | CPT/HCPCS: A0425; A0429 ==

== ENCOUNTER 2024-02-18 14:07 | Emergency (ER) | payer SELFPAY ==
--- NOTE | 2024-02-18 14:13 | ED Physician Documentation ---
PD HPI ALTERED MENTAL STATUS - Stated complaint Stated Complaint: DETOX - History obtained from History obtained from: Patient - History of Present Illness Timing - onset: Chronic (Ongoing alcohol use with inability to use have cessation or control despite attempts for getting the patient to detox or rehab. DCR has been involved. The patient has declined in function.) Timing - details: Gradual onset Quality / character: Disoriented, Other (poor self care for eating, fluids, and just stays well intoxicated.) Associated symptoms: General weakness. No: Fever, Headache Contributing factors: Intoxicated, Substance abuse (alcohol) Basline status: Alert and oriented X 3, Ambulatory Similar symptoms before: Diagnosis (chronic alcoholism with poor function and failed detox treatments.) Review of Systems Constitutional: denies: Fever Nose: denies: Rhinorrhea / runny nose, Congestion Throat: denies: Sore throat Respiratory: denies: Cough GI: reports: Vomiting. denies: Diarrhea, Bloody / black stool PD PAST MEDICAL HISTORY - Past Medical History Cardiovascular: None Respiratory: None Endocrine/Autoimmune: None GI: None : None HEENT: None Psych: Depression, Other Musculoskeletal: None Derm: None - Past Surgical History Past Surgical History: Yes General: Other Ortho: Other - Present Medications Home Medications: Ambulatory Orders Medication Instructions Recorded Confirmed LORazepam [Ativan] 1 mg PO Q6H PRN #25 tablet 10/22/23 Ondansetron Odt [Zofran] 4 mg TL Q6H PRN #10 tablet 10/22/23 PHENobarbitaL [Phenobarbital] 30 mg PO BID 6 Days #9 tablet 10/22/23 - Allergies Allergies/Adverse Reactions: Allergies Allergy/AdvReac Type Severity Reaction Status Date / Time No Known Drug Allergies Allergy Verified 02/18/24 14:25 - Social History Does the pt smoke?: No Smoking Status: Never smoker Does the pt drink ETOH?: Yes Does the pt have substance abuse?: No - Immunizations Immunizations are current?: Yes Immunizations: TDAP >10years/unknown - POLST Patient has POLST: No PD ED PE NORMAL - Vitals Vital signs reviewed: Yes - General General: Alert and oriented X 3 (oriented but is sluggish on responses. ), Well developed/nourished - HEENT HEENT: Atraumatic - Neck Neck: Supple, no meningeal sign, No adenopathy - Cardiac Cardiac: No murmur. No: RRR (mild tachycardia) - Respiratory Respiratory: No respiratory distress - Abdomen Abdomen: Normal bowel sounds, Soft, Non distended, No organomegaly - Derm Derm: Normal color, Warm and dry - Extremities Extremities: Normal ROM s pain - Neuro Neuro: Alert and oriented X 3 (but sluggish to answer, still gettin correct though), No motor deficit, Normal speech Results - Vitals Vitals: Vital Signs - 24 hr 02/18/24 14:20 Temperature 37.3 C Heart Rate 112 H Respiratory 20 Rate Blood Pressure 145/108 H O2 Saturation 92 Oxygen O2 Source Room air - Labs Labs: Laboratory Tests 02/18/24 02/18/24 02/18/24 14:39 14:39 16:05 WBC 4.3 L RBC 4.56 L Hgb 14.7 Hct 41.6 L MCV 91.2 MCH 32.2 H MCHC 35.3 RDW 14.2 Plt Count 77 L MPV 9.6 Neut # (Auto) 3.1 Lymph # (Auto) 0.7 L [place] # (Auto) 0.5 Eos # (Auto) 0.0 Baso # (Auto) 0.1 Absolute Nucleated RBC 0.00 Nucleated RBC % 0.0 Sodium 132 L Potassium 3.2 L Chloride 88 L Carbon Dioxide 27 Anion Gap 17.0 H BUN 8 Creatinine 0.7 Estimated GFR (MDRD) 130 Glucose 107 H Calcium 9.4 Magnesium 1.3 L Total Bilirubin 0.9 AST 149 H ALT 57 Alkaline Phosphatase 75 Total Creatine Kinase 392 H Total Protein 7.3 Albumin 4.2 Globulin 3.1 Albumin/Globulin Ratio 1.4 Lipase 161 H Vitamin B12 429 TSH 1.61 Urine Color YELLOW Urine Clarity CLEAR Urine pH 6.5 Ur Specific [place] <=1.005 Urine Protein 30 H Urine Glucose (UA) NEGATIVE Urine Ketones NEGATIVE Urine Occult Blood NEGATIVE Urine Nitrite NEGATIVE Urine Bilirubin NEGATIVE Urine Urobilinogen 4 H Ur Leukocyte Esterase NEGATIVE Urine RBC 0-5 Urine WBC 0-3 Ur Squamous Epith Cells NONE SEEN Urine Bacteria None Seen Ur Microscopic Review INDICATED Urine Culture Comments NOT INDICATED Salicylates < 1.5 Urine Opiates Screen NEGATIVE Ur Buprenorphine Scrn NEGATIVE Ur Oxycodone Screen NEGATIVE Urine Methadone Screen NEGATIVE Acetaminophen 0.2 Ur Barbiturates Screen NEGATIVE Ur Tricyclics Screen NEGATIVE Ur Phencyclidine Scrn NEGATIVE Ur Amphetamine Screen NEGATIVE U Methamphetamines Scrn NEGATIVE U Benzodiazepines Scrn NEGATIVE Urine Cocaine Screen NEGATIVE U Cannabinoids Screen NEGATIVE Ur Drug Screen Comment CUTOFF CONC BELOW: Ethyl Alcohol 176.4 SARS-CoV-2 (PCR) 02/18/24 02/18/24 16:05 17:58 WBC RBC Hgb Hct MCV MCH MCHC RDW Plt Count MPV Neut # (Auto) Lymph # (Auto) [place] # (Auto) Eos # (Auto) Baso # (Auto) Absolute Nucleated RBC Nucleated RBC % Sodium 132 L Potassium 3.6 Chloride 89 L Carbon Dioxide 26 Anion Gap 17.0 H BUN 10 Creatinine 0.8 Estimated GFR (MDRD) 111 Glucose 128 H Calcium 9.6 Magnesium 1.4 L Total Bilirubin 0.9 AST 174 H ALT 62 H Alkaline Phosphatase 76 Total Creatine Kinase Total Protein 7.2 Albumin 4.3 Globulin 2.9 Albumin/Globulin Ratio 1.5 Lipase 231 H Vitamin B12 TSH Urine Color Urine Clarity Urine pH Ur Specific [place] Urine Protein Urine Glucose (UA) Urine Ketones Urine Occult Blood Urine Nitrite Urine Bilirubin Urine Urobilinogen Ur Leukocyte Esterase Urine RBC Urine WBC Ur Squamous Epith Cells Urine Bacteria Ur Microscopic Review Urine Culture Comments Salicylates Urine Opiates Screen Ur Buprenorphine Scrn Ur Oxycodone Screen Urine Methadone Screen Acetaminophen Ur Barbiturates Screen Ur Tricyclics Screen Ur Phencyclidine Scrn Ur Amphetamine Screen U Methamphetamines Scrn U Benzodiazepines Scrn Urine Cocaine Screen U Cannabinoids Screen Ur Drug Screen Comment Ethyl Alcohol 47.1 SARS-CoV-2 (PCR) NOT DETECTED PD Medical Decision Making - ED course Complexity details: reviewed results, considered differential, d/w patient, d/w investment consultant (DCR Allyson - The DCR has been in communication with the patient and his family over the last several days or more. The patient has not been doing well with continued alcohol intake and poor eating and notable weight loss. Brought here for LASHAWN due to grave disability for medical clearance then xfer.) Reviewed Lab Results: The patient does have notable electrolyte abnormalities with particularly low potassium and magnesium. This likely is due to poor oral intake and report of recently some vomiting. The patient is not having vomiting here. He was given IV fluids when this was noted. Initially just oral medication to help with some early withdrawal type symptoms. His initial blood alcohol was still elevated but given his volume of alcohol intake, I would anticipate some withdrawal well before he is down low on the BA. He was given oral medicine initially and then his blood test came back showing notable electrolyte problems. No doubt has some volume depletion as well. Therefore an IV was started and he was given a liter of fluid with multivitamin, magnesium, thiamine with a double dose of the magnesium placed into the initial bag for total of 4 mg. He also given a potassium supplement rider. Subsequent to that he was also given a lactated Ringer's infusion over couple of hours. He was feeling less jittery and less nauseous. He did have some food to eat. He was given some oral fluids. Recheck of the labs a few hours later showed an improvement of the potassium 3.1 now 3.6. However the magnesium was only slightly increased from 1.3-1.4. Blood sugar and renal function are looking okay. I did place order for another magnesium rider IV and will also provide oral magnesium supplements on a scheduled basis for magnesium and potassium. Given that he had to have poor intake lately I also ordered famotidine. Thiamine had come with the "banana bag" but he was also given a separate dose of thiamine 100 mg IV. As scheduled thiamine orally twice daily. The DCR does intend to detain the patient. She is looking for beds though he will need to have a little bit improvement on the electrolytes in particular before other facilities would accept according to the DCR. Therefore we are still working on that diligently. At this point I would anticipate placement of the patient more likely tomorrow morning as facilities were not having beds readily available at this point this evening. This gives more prudent to the scheduled medications. I am estimating his degree of withdrawal. It may end up being more and I would defer to the evening and overnight physicians to adjust medications above the schedule once if needed. I ordered repeat chemistry panel electrolytes for 11 PM this evening. The will be reviewed and adjusted if needed. The medication doses will be adjusted. At this point the intention is for the patient to be detained under grave d isability and the LASHAWN laws once medically cleared with the main hindrance being in electrolytes at this point. Departure - Departure Disposition: [facility]Unit DC/Xfer Clinical Impression: Self-care deficit, Alcohol use disorder, Alcohol withdrawal, Electrolyte disturbance Condition: Stable Record reviewed to determine appropriate education?: Yes Forms: PCP List
[2024-02-18 14:58] LABS: BASOPHILS # (AUTO) 0.1 10^3/uL (0.0-0.1); BASOPHILS % (AUTO) 1.2 %; EOSINOPHILS % (AUTO) 0.5 %; HCT - HEMATOCRIT 41.6 % (42.0-52.0); HGB - HEMOGLOBIN 14.7 g/dL (14.0-18.0); LYMPHOCYTES # (AUTO) 0.7 10^3/uL (1.5-3.5); LYMPHOCYTES % (AUTO) 16.2 %; MEAN CORPUSCULAR HEMOGLOBIN 32.2 pg (27.0-31.0); MEAN CORPUSCULAR HGB CONC 35.3 g/dL (32.0-36.0); MEAN CORPUSCULAR VOLUME 91.2 fL (80.0-94.0); MEAN PLATELET VOLUME 9.6 fL (7.4-11.4); MONOCYTES # (AUTO) 0.5 10^3/uL (0.0-1.0); MONOCYTES % (AUTO) 10.9 %; NEUTROPHILS # (AUTO) 3.1 10^3/uL (1.5-6.6); NEUTROPHILS % (AUTO) 71.2 %; PLT - PLATELET COUNT 77 10^3/uL (130-450); RED BLOOD COUNT 4.56 10^6/uL (4.70-6.10); RED CELL DISTRIBUTION WIDTH 14.2 % (12.0-15.0); WHITE BLOOD COUNT 4.3 x10^3/uL (4.8-10.8)
[2024-02-18 15:18] LABS: ACETAMINOPHEN 0.2 ug/mL; CK- CREATINE KINASE 392 IU/L (30-223); ETOH - ETHANOL 176.4 mg/dL; LIPASE 161 U/L (11-82); MAGNESIUM 1.3 mg/dL (1.7-2.3)
[2024-02-18 15:26] LABS: ALBUMIN 4.2 g/dL (3.2-5.5); ALBUMIN/GLOBULIN RATIO 1.4 (1.0-2.2); ALKALINE PHOSPHATASE 75 IU/L (42-121); ALT ALANINE AMINOTRANSFERASE 57 IU/L (10-60); AST ASPARTATE AMINOTRANSFERASE 149 IU/L (10-42); BILIRUBIN,TOTAL 0.9 mg/dL (0.2-1.0); BUN - BLOOD UREA NITROGEN 8 mg/dL (6-20); CALCIUM 9.4 mg/dL (8.5-10.3); CARBON DIOXIDE - CO2 27 mmol/L (21-32); CHLORIDE 88 mmol/L (101-111); CREATININE 0.7 mg/dL (0.6-1.3); GFR - MDRD 130 (>89); GLUCOSE 107 mg/dL (74-104); POTASSIUM 3.2 mmol/L (3.5-4.5); SALICYLATE < 1.5 mg/dL; SODIUM 132 mmol/L (135-145); TOTAL PROTEIN 7.3 g/dL (6.4-8.9)
[2024-02-18 15:36] LABS: THYROID STIMULATING HORMONE 1.61 uIU/mL (0.34-5.60)
[2024-02-18] MEDS ORDERED: THIAMINE INJ 100 MG in SODIUM CHLORIDE 0.9% 50 ML IV STA (15:40)
[2024-02-18] MEDS: PHENobarbitaL 32.4 MG TABLET PO STA (15:41)
[2024-02-18] MEDS: ONDANSETRON ODT 4 MG TABLET TL STA (15:42)
[2024-02-18] MEDS: LORazepam 1 MG TABLET PO STA (15:42)
[2024-02-18] MEDS: FAMOTIDINE 20 MG TABLET PO STA (15:42)
[2024-02-18 16:21] LABS: BILIRUBIN,URINE NEGATIVE (NEGATIVE); GLUCOSE, URINE (UA) NEGATIVE (NEGATIVE); KETONES,URINE (UA) NEGATIVE (NEGATIVE); LEUKOCYTE ESTERASE, URINE NEGATIVE (NEGATIVE); NITRITE,URINE NEGATIVE (NEGATIVE); OCCULT BLOOD,URINE NEGATIVE (NEGATIVE); PH,URINE 6.5 PH (5.0-7.5); PROTEIN,URINE 30 mg/dL (NEGATIVE); UROBILINOGEN,URINE 4 E.U./dL (NORMAL)
[2024-02-18 16:22] LABS: CLARITY,URINE CLEAR (CLEAR)
[2024-02-18 16:31] LABS: AMPHETAMINE SCREEN,URINE NEGATIVE (NEGATIVE); BARBITURATE SCREEN,UR NEGATIVE (NEGATIVE); BENZODIAZEPINES SCREEN, URINE NEGATIVE (NEGATIVE); BUPRENORPHINE SCREEN, URINE NEGATIVE (NEGATIVE); COCAINE SCREEN URINE NEGATIVE (NEGATIVE); METHADONE SCREEN, URINE NEGATIVE (NEGATIVE); METHAMPHETAMINES SCREEN, URINE NEGATIVE (NEGATIVE); OPIATE SCREEN, URINE NEGATIVE (NEGATIVE); OXYCODONE SCREEN, URINE NEGATIVE (NEGATIVE); THC CANNABINOID SCREEN, URINE NEGATIVE (NEGATIVE); TRICYCLIC ANTIDEPRESSANT,URINE NEGATIVE (NEGATIVE)
[2024-02-18] MEDS: MAGNESIUM SULFATE 2 GRAM 2 GM/50 ML BAG IV ONE ×2 (16:38→19:02)
[2024-02-18 16:40] LABS: BACTERIA,URINE None Seen /HPF (None Seen); RBC,URINE 0-5 /HPF (0-5); SQUAMOUS EPITHELIAL CELL,UR NONE SEEN (<= Few); WBC,URINE 0-3 /HPF (0-3)
[2024-02-18] MEDS: THIAMINE IV STA (16:42)
[2024-02-18] MEDS: MULTIVITAMIN IV STA (16:42)
[2024-02-18] MEDS: POTASSIUM BICARB 25 MEQ TABLET PO STA (16:42)
[2024-02-18] MEDS: MAGNESIUM SULFATE IV STA (16:42)
[2024-02-18] MEDS: [UNRECOGNIZED DRUG - OTHER] IV STA (16:42)
[2024-02-18] MEDS: POTASSIUM CHLOR 10 MEQ/100 ML 10 MEQ/100 ML BAG IV ONE (16:54)
[2024-02-18 18:13] LABS: MAGNESIUM 1.4 mg/dL (1.7-2.3)
[2024-02-18 18:19] LABS: ETOH - ETHANOL 47.1 mg/dL
[2024-02-18] MEDS ORDERED: ONDANSETRON ODT 4 MG TABLET TL PRN (18:19)
[2024-02-18 18:25] LABS: ALBUMIN 4.3 g/dL (3.2-5.5); ALBUMIN/GLOBULIN RATIO 1.5 (1.0-2.2); BILIRUBIN,TOTAL 0.9 mg/dL (0.2-1.0); CALCIUM 9.6 mg/dL (8.5-10.3); CREATININE 0.8 mg/dL (0.6-1.3); POTASSIUM 3.6 mmol/L (3.5-4.5); TOTAL PROTEIN 7.2 g/dL (6.4-8.9)
[2024-02-18] MEDS: THIAMINE INJ 100 MG in SODIUM CHLORIDE 0.9% 50 ML IV STA (19:02)
[2024-02-18] MEDS: PHENobarbital 65 MG/ML VIAL IVP STA (19:02)
[2024-02-18] MEDS: LORazepam 2 MG/ML VIAL IVP STA (19:02)
[2024-02-18] MEDS: LORazepam 1 MG TABLET PO PRN (19:29)
[2024-02-18] MEDS: FAMOTIDINE 20 MG TABLET PO SCH (21:32)
[2024-02-18] MEDS: MAGNESIUM OXIDE 400 MG TABLET PO SCH (21:32)
[2024-02-18] MEDS: POTASSIUM BICARB 25 MEQ TABLET PO SCH (21:32)
[2024-02-18 22:48] VITALS: O2SAT 94
[2024-02-18 23:27] VITALS: BP 145/95
[2024-02-18 23:30] LABS: CALCIUM 9.3 mg/dL (8.5-10.3); CREATININE 0.8 mg/dL (0.6-1.3); POTASSIUM 3.6 mmol/L (3.5-4.5)
[2024-02-18] MEDS: traZODone 50 MG TABLET PO STA (23:54)
--- NOTE | 2024-02-19 07:17 | ED Physician Documentation ---
ED Addendum - Addendum Addendum: 02/19/24 07:15 The patient was signed out to me at change of shift, pending placement after being sent here by DCR for alcohol dependence and failure of self-care at home. The patient was ultimately accepted down and [facility] and went there voluntarily. Prior to leaving he did request something for diarrhea and also, and nicotine patch as he does vape and is feeling concerned about being without nicotine for this long. The patient had no further complaints or issues during my shift and was transferred to the end of my shift without incident. Final impression: 1. Alcohol dependence 2. Self-care deficit 3. Nicotine dependence Disposition: Transfer to rehab facility in stable and improved condition.
[2024-02-19] MEDS: LOPERAMIDE 2 MG CAPSULE PO STA (07:24)
[2024-02-19] MEDS: NICOTINE 21 MG PATCH TOP STA (07:29)
[2024-02-19] MEDS ORDERED: PHENobarbitaL 32.4 MG TABLET PO SCH (08:00)
== END 2024-02-19 07:04 ==
LOC: EDUNIT# → ED 14:07
DX: F10.239 Alcohol dependence with withdrawal, unspecified (principal); Y90.2 Blood alcohol level of 40-59 mg/100 ml; E87.8 Other disorders of electrolyte and fluid balance, not elsewhere classified; E87.6 Hypokalemia; E83.42 Hypomagnesemia; R19.7 Diarrhea, unspecified; F17.290 Nicotine dependence, other tobacco product, uncomplicated; Z79.899 Other long term (current) drug therapy
CPT/HCPCS: 36415; 80048; 80053; 80143; 80179; 80306; 81001; 81003; 82077; 82550; 82607; 83690; 83735; 84443; 85025; 87086; 87635; 96365; 96366; 96368; 96375; 99285

== ENCOUNTER 2024-06-24 16:03 | Outpatient (CLI) | payer MEDICAID | END 2024-06-24 16:04 | disposition critical access hospital (66) | LOC: EMS 16:03 | DX: Z04.6 Encounter for general psychiatric examination, requested by authority (principal); R41.82 Altered mental status, unspecified; F10.10 Alcohol abuse, uncomplicated | CPT/HCPCS: A0425; A0427; A0999 ==

== ENCOUNTER 2024-06-24 16:18 | Emergency (ER) | payer MEDICAID ==
[2024-06-24 16:45] LABS: BASOPHILS % (AUTO) 1.1 %; EOSINOPHILS # (AUTO) 0.1 10^3/uL (0.0-0.7); EOSINOPHILS % (AUTO) 1.4 %; HCT - HEMATOCRIT 44.6 % (42.0-52.0); HGB - HEMOGLOBIN 16.1 g/dL (14.0-18.0); LYMPHOCYTES # (AUTO) 0.9 10^3/uL (1.5-3.5); LYMPHOCYTES % (AUTO) 25.5 %; MEAN CORPUSCULAR HEMOGLOBIN 32.2 pg (27.0-31.0); MEAN CORPUSCULAR HGB CONC 36.1 g/dL (32.0-36.0); MEAN CORPUSCULAR VOLUME 89.2 fL (80.0-94.0); MEAN PLATELET VOLUME 9.2 fL (7.4-11.4); MONOCYTES # (AUTO) 0.4 10^3/uL (0.0-1.0); MONOCYTES % (AUTO) 12.1 %; NEUTROPHILS # (AUTO) 2.2 10^3/uL (1.5-6.6); NEUTROPHILS % (AUTO) 59.9 %; PLT - PLATELET COUNT 76 10^3/uL (130-450); RED CELL DISTRIBUTION WIDTH 14.2 % (12.0-15.0); WHITE BLOOD COUNT 3.7 x10^3/uL (4.8-10.8)
[2024-06-24 17:02] LABS: ALBUMIN/GLOBULIN RATIO 1.4 (1.0-2.2); ALKALINE PHOSPHATASE 105 IU/L (42-121); ALT ALANINE AMINOTRANSFERASE 106 IU/L (10-60); AST ASPARTATE AMINOTRANSFERASE 202 IU/L (10-42); BILIRUBIN,TOTAL 0.7 mg/dL (0.2-1.0); BUN - BLOOD UREA NITROGEN 7 mg/dL (6-20); CARBON DIOXIDE - CO2 28 mmol/L (21-32); CHLORIDE 100 mmol/L (101-111); CK- CREATINE KINASE 230 IU/L (30-223); CREATININE 0.7 mg/dL (0.6-1.3); GFR - MDRD 129 (>89); GLUCOSE 113 mg/dL (74-104); LIPASE 95 U/L (11-82); MAGNESIUM 1.6 mg/dL (1.7-2.3); POTASSIUM 3.4 mmol/L (3.5-4.5); SODIUM 141 mmol/L (135-145); TOTAL PROTEIN 6.8 g/dL (6.4-8.9)
[2024-06-24 17:05] LABS: ETOH - ETHANOL 579.8 mg/dL; SALICYLATE < 1.5 mg/dL
[2024-06-24 17:10] LABS: ACETAMINOPHEN < 0.1 ug/mL
[2024-06-24 17:13] LABS: THYROID STIMULATING HORMONE 0.93 uIU/mL (0.34-5.60)
--- NOTE | 2024-06-24 20:19 | ED Physician Documentation ---
History of Present Illness - Stated complaint Stated Complaint: LASHAWN/ETOH - Chief complaint Chief Complaint: MHE - Additonal information Additional information: 34 yo ,male here for alcohol intoxication. Patient was brought in via EMS as he was detained by DCR. Patient's mother and sister have been checking on him daily as apparently the patient has a history of psychiatric hospitalization due to this happening in the past as well as rehab admissions. He has been drinking for 30 days straight there is a big history of vodka and other alcohol bottles at his house. He was found to be soiled in his own urine and ultimately was brought into the emergency department for further evaluation and possible detainment. Patient is alert and responsive upon arrival to the emergency department he does appear quite intoxicated and smells of urine. He denies any chest pain or shortness of breath he just reports that he has been drinking a lot of alcohol for the last 13 days because life has been really hard. He denies any suicidal homicidal ideation denies any abdominal pain nausea vomiting head pain or neck pain. PD PAST MEDICAL HISTORY - Past Medical History Past Medical History: Yes Cardiovascular: None Respiratory: None Neuro: None Endocrine/Autoimmune: None GI: None : None HEENT: None Psych: Depression, Other Musculoskeletal: None Derm: None Other Past Medical History: ALCOHOLISM... - Past Surgical History Past Surgical History: Yes General: Other Ortho: Other - Present Medications Home Medications: Ambulatory Orders Medication Instructions Recorded Confirmed LORazepam [Ativan] 1 mg PO Q6H PRN #25 tablet 10/22/23 Ondansetron Odt [Zofran] 4 mg TL Q6H PRN #10 tablet 10/22/23 PHENobarbitaL [Phenobarbital] 30 mg PO BID 6 Days #9 tablet 10/22/23 - Allergies Allergies/Adverse Reactions: Allergies Allergy/AdvReac Type Severity Reaction Status Date / Time No Known Drug Allergies Allergy Verified 06/24/24 16:29 - Social History Does the pt smoke?: No Smoking Status: Never smoker Does the pt drink ETOH?: Yes Does the pt have substance abuse?: No - Immunizations Immunizations are current?: Yes Immunizations: TDAP >10years/unknown - POLST Patient has POLST: No PD ED PE NORMAL - Vitals Vital signs reviewed: Yes - General General: No acute distress, Other (soiled in urine, AOx4, disheveled, appears severely intoxicated) - HEENT HEENT: PERRL, EOMI, Other (bilateral periorbital swelling) - Neck Neck: No bony TTP, C-Spine cleared by NEXUS criteria - Cardiac Cardiac: RRR, Other (tachycardia) - Respiratory Respiratory: No respiratory distress - Abdomen Abdomen: Normal bowel sounds, Soft, Non tender, Non distended, No organomegaly - Derm Derm: Normal color, Warm and dry, No rash - Neuro Neuro: Alert and oriented X 3, 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 No: Suicidal, Homicidal, Tearful, Non verbal, Anxious, Agitated, Combative, Manic, Pressured speech, Flight of ideas, Auditory hallucinations, Visual hallucinations, Tactile hallucinations, Delusions Results - Vitals Vitals: Vital Signs - 24 hr 06/24/24 06/24/24 06/24/24 16:25 16:26 17:52 Temperature 36.8 C Heart Rate 95 99 99 Respiratory 20 17 17 Rate Blood Pressure 145/112 H 141/96 H 149/102 H O2 Saturation 95 97 93 Oxygen O2 Source Room air - EKG (time done) 1732 EKG releavant findings:: EKG personally interpreted by author of this note. Relevant findings are: Rate: Rate (enter#) (95) Rhythm: NSR [place]: Normal Intervals: Normal [place] QRS: Normal Ischemia: Normal ST segments, Other (Old inferior infarct, probable anteroseptal infarct) Computer interpretation: Agree with computer - Labs Labs: Laboratory Tests 06/24/24 06/24/24 16:40 16:40 WBC 3.7 L RBC 5.00 Hgb 16.1 Hct 44.6 MCV 89.2 MCH 32.2 H MCHC 36.1 H RDW 14.2 Plt Count 76 L MPV 9.2 Neut # (Auto) 2.2 Lymph # (Auto) 0.9 L Scott # (Auto) 0.4 Eos # (Auto) 0.1 Baso # (Auto) 0.0 Absolute Nucleated RBC 0.00 Nucleated RBC % 0.0 Sodium 141 Potassium 3.4 L Chloride 100 L Carbon Dioxide 28 Anion Gap 13.0 BUN 7 Creatinine 0.7 Estimated GFR (MDRD) 129 Glucose 113 H Calcium 8.0 L Magnesium 1.6 L Total Bilirubin 0.7 AST 202 H ALT 106 H Alkaline Phosphatase 105 Total Creatine Kinase 230 H Total Protein 6.8 Albumin 4.0 Globulin 2.8 Albumin/Globulin Ratio 1.4 Lipase 95 H TSH 0.93 Salicylates < 1.5 Acetaminophen < 0.1 Ethyl Alcohol 579.8 H* - Rads (name of study) Head CT without Relevant Findings:: Final report received, EMP independent interpretation of test, Other (No acute intracranial abnormalities or hemorrhages no soft tissue swelling surrounding patient's scalp.) Cervical spine CT without Relevant Findings:: Final report received, EMP independent interpretation of test, Other (No acute cervical abnormalities no subluxations or fractures.) PD Medical Decision Making - ED course ED course: 34-year-old male presents emergency department for severe alcohol intoxication. I spoke with GAUTAM Vasquez who says that mother called the [facility] for concerns of patient's severe alcohol intoxication unable to care for himself. Patient is more alert and awake at this point in time he continues to deny any suicidal homicidal ideation I went ahead with a head CT as well as a cervical spine CT without contrast for further evaluation given how intoxicated patient was in no acute fractures or intracranial hemorrhages were visualized. Labs are complete he has leukopenia, white count 3.7 no anemia low platelet count was likely due to alcohol dependence, 76 mild hypokalemia 3.4 hypocalcemia 8.0, hypomagnesemia 1.6, AST and ALT elevated, AST 202, ALT 106 and alcohol level was found to be 579. Patient is medically cleared to be evaluated by DCR who will do a Zoom meeting with him that at this point in time he is not allowed to leave according to DCR. Report given to ER physician due to change of shift. Departure - Departure Clinical Impression: Alcohol intoxication Forms: PCP List
--- NOTE | 2024-06-24 21:26 | CT Report ---
PROCEDURE: Head WO INDICATIONS: AMS TECHNIQUE: Noncontrast 4.5 mm thick angled axial sections acquired from the foramen magnum to the vertex. For r adiation dose reduction, the following was used: automated exposure control, adjustment of mA and/or kV according to patient size. COMPARISON: 12/16/2022 FINDINGS: Image quality: Excellent. CSF spaces: Basal cisterns are patent. No extra-axial fluid collections. Ventricles are normal in size and shape. Brain: No midline shift. No intracranial masses or hemorrhage. Alford-white matter interface is norm al. Skull and face: Calvarium and visualized facial bones are intact, without suspicious lesions. Sinuses: Visualized sinuses and mastoids are clear. IMPRESSION: No CT evidence of acute intracranial trauma. No significant soft tissue injury or underlying fracture. Reviewed by: Bernie Bradley MD on 06/24/2024 9:25 PM PDT Approved by: Bernie Bradley MD on 06/24/2024 9:25 PM PDT Station ID: [id number]
--- NOTE | 2024-06-24 22:07 | CT Report ---
PROCEDURE: Cervical Spine WO INDICATIONS: AMS, found down, ETOH intoxication TECHNIQUE: Noncontrast 3 mm thick sections acquired from the skull base to the T4 level. Sagittal and coronal r eformats were then constructed. For radiation dose reduction, the following was used: automated exp osure control, adjustment of mA and/or kV according to patient size. COMPARISON: None. FINDINGS: Image quality: Excellent. Bones: No fractures or dislocations. Visualized superior ribs are intact. Soft tissues: Prevertebral soft tissues are normal in thickness. No paravertebral hematomas. No ap ical pneumothoraces. IMPRESSION: No acute, displaced fracture or traumatic subluxation. Reviewed by: Bernie Bradley MD on 06/24/2024 10:06 PM PDT Approved by: Bernie Bradley MD on 06/24/2024 10:06 PM PDT Station ID: [id number]
[2024-06-24] MEDS: SODIUM CHLORIDE 0.9% 1,000 ML IV ONE (22:49)
[2024-06-24] MEDS ORDERED: FOLIC ACID 5 MG/1 ML 10ML MDV ONE (22:57)
[2024-06-24] MEDS ORDERED: THIAMINE 100 MG/1 ML 2 ML MDV ONE (22:57)
[2024-06-24] MEDS: ONDANSETRON 4 MG/2 ML VIAL IVP STA (22:59)
[2024-06-24] MEDS: THIAMINE INJ 100 MG, FOLIC ACID INJ 1 MG in SODIUM CHLORIDE 0.9% 1,000 ML IV STA (23:39)
--- NOTE | 2024-06-24 23:44 | ED Physician Documentation ---
ED Addendum - Addendum Addendum: 06/24/24 23:43 Discussed with DCR who would like patient to be involuntarily held per [place] law for severe lack of decision-making capacity due to substance use issues. 06/25/24 06:53 Disposition transfer to inpatient psych Condition stable Impression 1. alcohol dependence 2. depression
[2024-06-24] MEDS: THIAMINE 100 MG TABLET PO STA (23:53)
[2024-06-24] MEDS: POTASSIUM CHLORIDE 20 MEQ TABLET PO STA (23:53)
[2024-06-24] MEDS: MAGNESIUM OXIDE 400 MG TABLET PO STA (23:54)
[2024-06-25] MEDS: LORazepam 1 MG TABLET PO PRN (00:53)
[2024-06-25 01:04] LABS: BILIRUBIN,URINE NEGATIVE (NEGATIVE); GLUCOSE, URINE (UA) NEGATIVE (NEGATIVE); KETONES,URINE (UA) NEGATIVE (NEGATIVE); LEUKOCYTE ESTERASE, URINE NEGATIVE (NEGATIVE); NITRITE,URINE NEGATIVE (NEGATIVE); OCCULT BLOOD,URINE NEGATIVE (NEGATIVE); PROTEIN,URINE 30 mg/dL (NEGATIVE); UROBILINOGEN,URINE 1 (NORMAL) E.U./dL (NORMAL)
[2024-06-25 01:05] LABS: CLARITY,URINE CLEAR (CLEAR)
[2024-06-25 01:32] LABS: AMPHETAMINE SCREEN,URINE NEGATIVE (NEGATIVE); BARBITURATE SCREEN,UR NEGATIVE (NEGATIVE); BENZODIAZEPINES SCREEN, URINE NEGATIVE (NEGATIVE); BUPRENORPHINE SCREEN, URINE NEGATIVE (NEGATIVE); COCAINE SCREEN URINE NEGATIVE (NEGATIVE); METHADONE SCREEN, URINE NEGATIVE (NEGATIVE); METHAMPHETAMINES SCREEN, URINE NEGATIVE (NEGATIVE); OPIATE SCREEN, URINE NEGATIVE (NEGATIVE); OXYCODONE SCREEN, URINE NEGATIVE (NEGATIVE); THC CANNABINOID SCREEN, URINE NEGATIVE (NEGATIVE); TRICYCLIC ANTIDEPRESSANT,URINE NEGATIVE (NEGATIVE)
[2024-06-25 01:35] LABS: BACTERIA,URINE Rare /HPF (None Seen); RBC,URINE 0-5 /HPF (0-5); SQUAMOUS EPITHELIAL CELL,UR RARE Squamous (<= Few); WBC,URINE 0-3 /HPF (0-3)
[2024-06-25] MEDS: traZODone 50 MG TABLET PO STA (02:22)
[2024-06-25 06:50] VITALS: BP 129/76; O2SAT 100
[2024-06-25] MEDS ORDERED: MAGNESIUM OXIDE 400 MG TABLET PO SCH (08:00)
== END 2024-06-25 06:45 ==
LOC: EDUNIT# → ED 16:18
DX: F10.229 Alcohol dependence with intoxication, unspecified (principal); F32.A Depression, unspecified; Y90.8 Blood alcohol level of 240 mg/100 ml or more; E87.6 Hypokalemia; E83.42 Hypomagnesemia; D72.819 Decreased white blood cell count, unspecified; E83.51 Hypocalcemia
CPT/HCPCS: 36415; 70450; 72125; 80053; 80143; 80179; 80306; 81001; 82077; 82550; 83690; 83735; 84443; 85025; 87635; 93005; 96374; 99285; A9270; J8499; 81003; 87086